=== PATIENT | male | born 1955 | race Caucasian/White ===

== ENCOUNTER 2016-09-02 16:12 | Emergency (ER) | payer OTHER ==
[2016-09-02 16:21] VITALS: PULSE 58
[2016-09-02] MEDS ORDERED: OXYCODONE/APAP 5/325 TAB PO ONE (16:30)
--- NOTE | 2016-09-02 16:30 | EDPHY ---
General - History Smoking Status: Never smoked Narrative: CHIEF COMPLAINT: Ankle injury HISTORY OF PRESENT ILLNESS: Patient was walking down his steps inside his home this afternoon when he tripped, inverting his left foot. Noted a sudden onset of pain on the lateral aspect of the left ankle. [id number] pain. Worse with palpation or movement. No radiating pain. No numbness or tingling. No pain in the ipsilateral foot, heel or proximal fibula. Able to bear weight but with moderate to severe pain. No injury elsewhere. No other associated complaints or modifying factors. PRIOR ORTHO INJURIES: None ESTABLISHED ORTHOPEDIST: None REVIEW OF SYSTEMS: Ten systems reviewed and are negative unless otherwise noted in the HPI EXAMINATION General Appearance: Alert, no distress Cardiovascular: Pulses normal throughout. Symmetric DP pulses 2+. Brisk cap refill Neurological: A&O, sensory symmetric, strength symmetric. Normal proprioception of the great toe Skin: Warm and dry, no rash. Mild ecchymosis over the left lateral ankle. No lacerations or abrasions. Extremities: Moderate tenderness of the left lateral malleolus. There is moderate edema noted. No instability of the ankle. No tenderness of the left midfoot her left heel. No tenderness of the left proximal fibula. Range of motion of the ankles are symmetric and intact Psychiatric: Mood and affect normal DIFFERENTIAL DIAGNOSES: Including but not limited to sprain, fracture, fracture dislocation, strain, hematoma MDM: 4:30 p.m. Acute inversion injury of the left ankle. There is lateral malleolar tenderness and edema. X-ray has been ordered. He is neuro intact with no pain of the mid foot, heel or proximal fibula. 5:00 p.m. Notified by radiologist Dr. Wallace. Acute, nondisplaced fracture of the distal fibula as well as a transverse proximal 5th metatarsal fracture. 5:30 p.m. I have re-evaluated the patient. He remains neurovascular intact. I have informed the fracture of the distal fibula and the 5th metatarsal. I have placed on a Kevin boot and crutches. He is to remain nonweightbearing until seen by Orthopedics next week due to the location of the fibular fracture. He is comfortable with this plan. We will also discuss compression stockings versus Caio wrap to the calf for DVT prophylaxis. Also recommend taking aspirin daily. He will follow up with Orthopedics next week. Return to ER for worsening pain, increasing swelling or neuro changes. ED Precautions: Worsening pain. Erythema, edema, cyanosis, pallor, paresthesia or anesthesia. SUPERVISION: This patient was independently evaluated without direct examination by the attending physician. Case was discussed with attending physician. (Arvind Ziegler ) - Diagnostics Imaging Results: Imaging Impressions Ankle X-Ray 09/02/16 16:30 Impression: 1. Minimally displaced transverse fracture of the lateral malleolus. 2. Nondisplaced transverse fracture of the base of the fifth metatarsal. 3. Additional findings as above. Findings discussed with Arvind Ziegler 09/02/2016 at 16:57. - Objective Vital Signs: Initial Vital Signs Temperature (C) 36.6 C 09/02/16 16:17 Heart Rate 58 L 09/02/16 16:17 Respiratory Rate 16 09/02/16 16:17 Blood Pressure 148/98 H 09/02/16 16:17 O2 Sat (%) 98 09/02/16 16:17 O2 Delivery Mode Room Air Allergies/Adverse Reactions: No Known Allergies Allergy (Verified 09/02/16 16:17) Home Medications: Medication Instructions Recorded Metoprolol Succinate Xr [Toprol Xl 25 mg PO DAILY 09/02/16 25 mg (*)] oxyCODONE HCL/ACETAMINOPHEN 1 each PO Q4-6PRN PRN #20 tablet 09/02/16 [Percocet 5-325 mg Tablet] Medications Given: Discontinued Medications Oxycodone/Acetaminophen (Percocet 5/325) 1 tab PO EDNOW ONE Stop: 09/02/16 16:31 Last Admin: 09/02/16 16:43 Dose: 1 tab Oxycodone/Acetaminophen (Percocet 5/325mg Prepack#4) 1 btl TAKEHOME EDNOW ONE Stop: 09/02/16 18:25 Last Admin: 09/02/16 18:28 Dose: 1 btl Departure - Departure Disposition: Home, Routine, Self-Care Clinical Impression: Sprain of ankle, left Qualifiers: Encounter type: initial encounter Involved ligament of ankle: unspecified ligament Qualified Code(s): S93.402A - Sprain of unspecified ligament of left ankle, initial encounter Condition: Good Instructions: Ankle Fracture (ED), Ankle Sprain (ED), Leg Fracture (ED), Foot Fracture in Adults (ED) Additional Instructions: Symptomatic medications as discussed. Follow up with Orthopedics for definitive care. Return to ER for worsening pain, numbness or tingling Referrals: Elisabet Isaac PA [Primary Care Provider] - As per Instructions eMdina Martínez MD [Medical Doctor] - As per Instructions Prescriptions: oxyCODONE HCL/ACETAMINOPHEN [Percocet 5-325 mg Tablet] 1 each PO Q4-6PRN PRN # 20 tablet PRN Reason: Pain, Breakthrough
[2016-09-02 18:07] VITALS: BP 129/87; RESP 20; TEMP 98.1; O2SAT 93
[2016-09-02] MEDS ORDERED: OXYCODONE/APAP 5/325MG PREPACK#4 BTL TAKEHOME ONE (18:24)
== END 2016-09-02 18:07 | disposition home or self-care (01) ==
DX: S93.402A Sprain of unspecified ligament of left ankle, initial encounter (principal); X58.XXXA Exposure to other specified factors, initial encounter; Y92.009 Unspecified place in unspecified non-institutional (private) residence as the place of occurrence of the external cause; Y93.01 Activity, walking, marching and hiking
CPT/HCPCS: L4386

== ENCOUNTER → 2017-01-02 | Outpatient (CLI) | payer OTHER | LOC: CIMAGING 14:35 | PROVIDERS: ATTEND Orthopaedic Surgery | DX: S82.62XK Displaced fracture of lateral malleolus of left fibula, subsequent encounter for closed fracture with nonunion (principal) | CPT/HCPCS: 73700-PO ==

== ENCOUNTER 2017-07-13 14:55 | Emergency (ER) | payer OTHER ==
--- NOTE | 2017-07-13 15:11 | CPEKG ---
Heart Rate: 67 RR Interval: 896 P-R Interval: 144 QRSD Interval: 88 QT Interval: 404 QTC Interval: 427 P [place]: 43 QRS [place]: -23 T Wave [place]: -6 EKG Severity - BORDERLINE ECG - EKG Impression: SINUS RHYTHM EKG Impression: BORDERLINE LEFT AXIS DEVIATION EKG Impression: BORDERLINE T ABNORMALITIES, INFERIOR LEADS Electronically Signed By: Rupal Muñoz 14-Jul-2017 20:12:18
[2017-07-13] MEDS ORDERED: ASPIRIN 81 MG CHEWABLE TAB PO ONE (16:26)
[2017-07-13] MEDS ORDERED: NS 500 ML IV ONE (16:26)
--- NOTE | 2017-07-13 16:29 | EDPHY ---
H & P Time Seen by Provider: 07/13/17 15:09 HPI/ROS: CHIEF COMPLAINT: Palpitations HISTORY OF PRESENT ILLNESS: The patient is a 62-year-old male with a history of hypertension, PE and DVT who presents to the emergency department with intermittent palpitations. Symptoms started 2 weeks ago. They occur more frequently at at night. They last for seconds at a time. He denies any associated symptoms when he has the palpitations. He has no lightheadedness or dizziness. No chest pain or shortness of breath. Patient was at his neurologist's office to be evaluated for migraines. The neurologist was listening to him he noted that he was in a rapid rate in 7 to the emergency department. Patient denies any palpitations at this time. He is asymptomatic. REVIEW OF SYSTEMS: My complete review of systems is negative except as mentioned in the HPI. Past Medical/Surgical History: Includes DVT, PE, hypertension, migraine. His DVT was secondary to Orthopedic surgery. Past surgical history: Orthopedic surgery Social history: The patient drinks coffee. He does not use alcohol. Smoking Status: Never smoked Physical Exam: Vitals noted GENERAL: Well-appearing, in no acute distress, alert. HEENT: Eyes normal to inspection, normal pharynx, no signs of dehydration. NECK: [No thyromegaly, no lymphadenopathy, supple. RESPIRATORY: Clear to auscultation bilaterally, no rales, rhonchi or wheezing. CVS: Regular rate and rhythm, no rubs, murmurs, or gallops. ABDOMEN: Soft, nontender, nondistended, no organomegaly. BACK: Normal to inspection, no CVA tenderness. SKIN: Normal color, no rash, warm, dry. No pallor. EXTREMITIES: No pedal edema, no calf tenderness, no Homans sign or cords, no joint swelling. NEURO/PSYCH: Alert and oriented x3, normal mood and affect, normal motor sensory exam. No obvious cranial nerve deficit. Constitutional: Initial Vital Signs Temperature (C) 36.9 C 07/13/17 14:56 Heart Rate 69 07/13/17 14:56 Respiratory Rate 18 07/13/17 14:56 Blood Pressure 163/106 H 07/13/17 14:56 O2 Sat (%) 96 07/13/17 14:56 O2 Delivery Mode Room Air Allergies/Adverse Reactions: No Known Allergies Allergy (Verified 09/02/16 16:17) Home Medications: Medication Instructions Recorded Metoprolol Succinate Xr [Toprol Xl 25 mg PO DAILY 09/02/16 25 mg (*)] Medical Decision Making ED Course/Re-evaluation: In the emergency department I discussed possible etiologies with the patient. Laboratory studies and EKG were ordered. Patient was placed on a monitor and storage bin tender. He was in sinus rhythm. EKG shows normal sinus rhythm, normal rate, normal axis, normal intervals. There are no ST or T-wave abnormalities. EKG is normal as interpreted by me. Unchanged from previous Differential Diagnosis: My differential includes but is not limited to ACS, acute MS, dysrhythmia, atrial fibrillation, atrial flutter, V-tach, VFib electrolyte abnormality, sugar abnormality, thyroid disease - Data Points Laboratory Results: Laboratory Results 07/13/17 15:10 07/13/17 15:10 07/13/17 07/13/17 15:10 15:10 WBC 6.87 10^3/uL 10^3/uL (3.80-9.50) RBC 4.82 10^6/uL 10^6/uL (4.40-6.38) Hgb 15.0 g/dL g/dL (13.7-17.5) Hct 43.0 % % (40.0-51.0) MCV 89.2 fL fL (81.5-99.8) MCH 31.1 pg pg (27.9-34.1) MCHC 34.9 g/dL g/dL (32.4-36.7) RDW 13.2 % % (11.5-15.2) Plt Count 219 10^3/uL 10^3/uL (150-400) MPV 12.0 fL H fL (8.7-11.7) Neut % (Auto) 62.1 % % (39.3-74.2) Lymph % (Auto) 27.7 % % (15.0-45.0) [place] % (Auto) 7.7 % % (4.5-13.0) Eos % (Auto) 1.6 % % (0.6-7.6) Baso % (Auto) 0.6 % % (0.3-1.7) Nucleat RBC Rel Count 0.0 % % (0.0-0.2) Absolute Neuts (auto) 4.27 10^3/uL 10^3/uL (1.70-6.50) Absolute Lymphs (auto) 1.90 10^3/uL 10^3/uL (1.00-3.00) Absolute Monos (auto) 0.53 10^3/uL 10^3/uL (0.30-0.80) Absolute Eos (auto) 0.11 10^3/uL 10^3/uL (0.03-0.40) Absolute Basos (auto) 0.04 10^3/uL 10^3/uL (0.02-0.10) Absolute Nucleated RBC 0.00 10^3/uL 10^3/uL (0-0.01) Immature Gran % 0.3 % % (0.0-1.1) Immature Gran # 0.02 10^3/uL 10^3/uL (0.00-0.10) Sodium 142 mEq/L mEq/L (135-145) Potassium 3.7 mEq/L mEq/L (3.5-5.2) Chloride 105 mEq/L mEq/L (97-110) Carbon Dioxide 25 mEq/l mEq/l (22-31) Anion Gap 12 mEq/L mEq/L (8-16) BUN 11 mg/dL mg/dL (7-23) Creatinine 0.8 mg/dL mg/dL (0.7-1.3) Estimated GFR > 60 Glucose 89 mg/dL mg/dL (70-100) Calcium 9.7 mg/dL mg/dL (8.5-10.4) Troponin I < 0.012 ng/mL ng/mL (0.000-0.034) TSH 3.640 uIU/mL uIU/mL (0.465-4.680) Medications Given: Discontinued Medications Aspirin (Aspirin) 324 mg PO EDNOW ONE Stop: 07/13/17 16:27 Last Admin: 07/13/17 17:12 Dose: 324 mg Sodium Chloride (Ns) 500 mls @ 1,000 mls/hr IV EDNOW ONE PRN Reason: Protocol Stop: 07/13/17 16:55 Last Admin: 07/13/17 17:10 Dose: 500 mls Departure - Departure Disposition: Home, Routine, Self-Care Clinical Impression: Palpitations Condition: Good Instructions: Heart Palpitations (ED) Additional Instructions: You need close follow-up with Cardiology. You been given Cardiology contact information. Return with increasing palpitations, prolonged palpitations, chest pain, shortness of breath, lightheadedness, dizziness or any other concerns. Cardiology was given your contact information and will call Sunday morning. If you do not hear from them call Cardiology on Sunday Referrals: Elisabet Isaac PA [Primary Care Provider] - 2-3 days without fail [facility] [Provider Group] - 07/16/17
[2017-07-13 17:12] LABS: PLATELET COUNT 219 10^3/uL (150-400)
[2017-07-13 18:59] VITALS: BP 152/95; PULSE 61; RESP 16; TEMP 98.2; O2SAT 93
== END 2017-07-13 18:59 | disposition home or self-care (01) ==
DX: R00.2 Palpitations (principal); I10 Essential (primary) hypertension; E86.9 Volume depletion, unspecified

== ENCOUNTER 2017-07-25 15:24 | Observation (INO) | payer OTHER ==
[2017-07-25] MEDS ORDERED: DILTIAZEM 125 MG in D5W 125 ML IV ONE (15:39)
--- NOTE | 2017-07-25 15:42 | CPEKG ---
Heart Rate: 108 RR Interval: 556 QRSD Interval: 86 QT Interval: 328 QTC Interval: 440 QRS [place]: -31 T Wave [place]: -10 EKG Severity - ABNORMAL ECG - EKG Impression: ATRIAL FIBRILLATION, V-RATE 71-167 EKG Impression: LEFT AXIS DEVIATION EKG Impression: BORDERLINE T ABNORMALITIES, INFERIOR LEADS Electronically Signed By: Lisa Rojas 25-Jul-2017 20:52:00
[2017-07-25] MEDS ORDERED: DILTIAZEM HCL/D5W 125 ML IV SCH (16:00)
[2017-07-25] MEDS ORDERED: NS 500 ML IV ONE (16:08)
[2017-07-25 16:21] LABS: PLATELET COUNT 239 10^3/uL (150-400)
--- NOTE | 2017-07-25 16:26 | EDPHY ---
H & P Time Seen by Provider: 07/25/17 15:38 HPI/ROS: HPI Palpitations. 62-year-old male by private vehicle. This patient reports that he was recently diagnosed with atrial fibrillation which she describes to me as intermittent in nature. He was evaluated by his neurologist for an unrelated problem about a week and half ago. His neurologist noted that he had a fast and irregular pulse. He was then sent to the emergency department and seen on July 13. At that time he had an unremarkable EKG which showed a normal sinus rhythm. He was discharged after an unremarkable workup with close follow-up with Cardiology. He was seen at [facility]. He was placed on a Holter monitor and recently diagnosed with intermittent atrial fibrillation. He was started on Eliquis 2 days ago at 5 mg twice daily. He presents to the emergency department stating that he has felt an irregular heartbeat and just feeling "off " with increased fatigue for the last 16 hr. He denies any chest pain, no shortness of breath. No other complaints. ROS: Constitutional: No fever, no chills. As above. Eyes: No discharge. No changes in vision. ENT: No sore throat. No nasal congestion or rhinorrhea. Respiratory: No cough. No shortness of breath. Cardiac: No chest pain, as above. Gastrointestinal: No abdominal pain, no vomiting, no diarrhea. Genitourinary: No hematuria. No dysuria or increased frequency with urination. Musculoskeletal: No back pain. No neck pain. No myalgias or arthralgias. Skin: No rashes. Neurological: No headache. No focal weakness or altered sensation. Past medical history: Hypertension, recently diagnosed atrial fibrillation, prior history of DVT and PE. Besides Eliquis he also takes lisinopril. Social history: Nonsmoker. Drinks alcohol occasionally. Here currently by himself. Physical Exam: General Appearance: Alert, no distress. This patient is responding to questions appropriately and in full sentences. This patient appears well- hydrated and well-nourished. Eyes: Pupils equal and round no pallor or injection. No lid edema, erythema or injection. Respiratory: There are no retractions, lungs are clear to auscultation with good air movement bilaterally. Cardiovascular: Irregular irregular rhythm. No murmur appreciated. Gastrointestinal: Abdomen is soft and nontender, no masses, bowel sounds normal. No focal tenderness at McBurney's point. No Hargrove sign. Neurological: Motor sensory function is grossly intact. Cranial nerves are normal. Gait is normal. Skin: Warm and dry, no rashes. Musculoskeletal: Neck is supple and nontender. Extremities are symmetrical. All joints range without pain or impingement. Psychiatric: No agitation. No depression. Database: EKG: EKG time is 3:40 p.m.: EKG shows a narrow complex atrial fibrillation with ventricular rate average of 108. Left axis deviation noted. Borderline T-wave abnormalities in diffuse leads. No ST, T-wave changes indicative of acute ischemic or injury pattern. No evidence of right heart strain. Interpreted by me. Imaging: Chest x-ray AP portable; the cardiac mediastinal silhouette is unremarkable. No evidence of infiltrate or pneumothorax. No acute cardiopulmonary disease process noted. Interpreted by me. Procedures: Emergency department course: IV was placed. His vital signs were reviewed. monitoring specialist her at the time of my evaluation showed a irregular narrow complex rhythm with ventricular rate average in the 70s. The patient is currently on Eliquis. He will be started on normal saline with 500 cc to be given over the next 30 min to 1 hr. EKG obtained and reviewed by myself. 5:00 p.m., spoke with on-call vp design Dr. Sanket Welsh. He is familiar with this patient. He is happy to admit the patient with plan for JOÃO in the morning and cardioversion. He also feels it is reasonable if the patient wants to go home he will get the patient in to see Dr. Murphy sooner than previously scheduled which is about a week out. 5:05 p.m., patient re-evaluated. He is resting comfortably at this time. His rate has increased to 115-120. Denies any chest pain or shortness of breath. Patient given options of management. He would like to be admitted for JOÃO and cardioversion in the morning as above. 5:15 p.m., spoke with hospitalist, Dr. Amin. Case discussed in detail. He accepts this patient for admission and management plan as above. Patient's remaining emergency department course under my care has been uneventful. He has remained stable. He was admitted to the hospitalist service, telemetry in stable condition. Differential Diagnosis: The differential diagnosis on this patient includes but is not limited to atrial fibrillation. Hyperthyroid state, pulmonary embolism, acute coronary syndrome, electrolyte abnormality unlikely. This represents a partial list of diagnoses considered. These considerations are based on history, physical exam , past history, reassessment and diagnostic testing. Smoking Status: Never smoked Constitutional: Initial Vital Signs Temperature (C) 36.3 C 07/25/17 15:31 Heart Rate 73 07/25/17 15:31 Respiratory Rate 16 07/25/17 15:31 Blood Pressure 115/92 H 07/25/17 15:31 O2 Sat (%) 96 07/25/17 15:31 O2 Delivery Mode Room Air Allergies/Adverse Reactions: No Known Allergies Allergy (Verified 07/25/17 15:31) Home Medications: Medication Instructions Recorded Metoprolol Succinate Xr [Toprol Xl 25 mg PO DAILY 09/02/16 25 mg (*)] Eliquis 07/25/17 Lisinopril 07/25/17 Medical Decision Making - Diagnostics Imaging Results: Imaging Impressions Chest X-Ray 07/25/17 16:09 Impression: No active cardiopulmonary disease seen. - Data Points Laboratory Results: Laboratory Results 07/25/17 15:40 07/25/17 15:40 07/25/17 07/25/17 07/25/17 15:40 15:40 15:40 WBC 10.82 10^3/uL H 10^3/uL (3.80-9.50) RBC 5.39 10^6/uL 10^6/uL (4.40-6.38) Hgb 16.6 g/dL g/dL (13.7-17.5) Hct 47.0 % % (40.0-51.0) MCV 87.2 fL fL (81.5-99.8) MCH 30.8 pg pg (27.9-34.1) MCHC 35.3 g/dL g/dL (32.4-36.7) RDW 13.3 % % (11.5-15.2) Plt Count 239 10^3/uL 10^3/uL (150-400) MPV 11.3 fL fL (8.7-11.7) Neut % (Auto) 81.0 % H % (39.3-74.2) Lymph % (Auto) 12.6 % L % (15.0-45.0) [place] % (Auto) 5.4 % % (4.5-13.0) Eos % (Auto) 0.1 % L % (0.6-7.6) Baso % (Auto) 0.3 % % (0.3-1.7) Nucleat RBC Rel Count 0.0 % % (0.0-0.2) Absolute Neuts (auto) 8.77 10^3/uL H 10^3/uL (1.70-6.50) Absolute Lymphs (auto) 1.36 10^3/uL 10^3/uL (1.00-3.00) Absolute Monos (auto) 0.58 10^3/uL 10^3/uL (0.30-0.80) Absolute Eos (auto) 0.01 10^3/uL L 10^3/uL (0.03-0.40) Absolute Basos (auto) 0.03 10^3/uL 10^3/uL (0.02-0.10) Absolute Nucleated RBC 0.00 10^3/uL 10^3/uL (0-0.01) Immature Gran % 0.6 % % (0.0-1.1) Immature Gran # 0.07 10^3/uL 10^3/uL (0.00-0.10) PT 14.3 SEC SEC (12.0-15.0) INR 1.09 (0.83-1.16) APTT 32.0 SEC SEC (23.0-38.0) Sodium 141 mEq/L mEq/L (135-145) Potassium 4.7 mEq/L mEq/L (3.5-5.2) Chloride 108 mEq/L mEq/L (97-110) Carbon Dioxide 23 mEq/l mEq/l (22-31) Anion Gap 10 mEq/L mEq/L (8-16) BUN 17 mg/dL mg/dL (7-23) Creatinine 0.7 mg/dL mg/dL (0.7-1.3) Estimated GFR > 60 Glucose 107 mg/dL H mg/dL (70-100) Calcium 10.5 mg/dL H mg/dL (8.5-10.4) Creatine Kinase 28 IU/L IU/L (0-224) CK-MB (CK-2) Fraction 0.34 ng/mL ng/mL (0.00-3.19) Troponin I < 0.012 ng/mL ng/mL (0.000-0.034) TSH 1.500 uIU/mL uIU/mL (0.465-4.680) Medications Given: Discontinued Medications Diltiazem HCl 125 mg/ Dextrose 125 mls @ 0 mls/hr IV EDNOW ONE; Titrate PRN Reason: Protocol Stop: 07/25/17 15:40 Last Admin: 07/25/17 17:00 Dose: Not Given Sodium Chloride (Ns) 500 mls @ 1,000 mls/hr IV EDNOW ONE PRN Reason: Protocol Stop: 07/25/17 16:37 Last Admin: 07/25/17 16:37 Dose: 500 mls Departure - Departure Disposition: [facility] Acute Clinical Impression: Atrial fibrillation Referrals: Elisabet Isaac PA [Primary Care Provider] - As per Instructions
[2017-07-25 16:35] LABS: CREATINE KINASE 28 IU/L (0-224)
[2017-07-25 16:56] LABS: INR 1.09 (0.83-1.16); PROTIME(PATIENT) 14.3 SEC (12.0-15.0)
[2017-07-25] MEDS ORDERED: ZOLPIDEM TARTRATE 5 MG TAB PO PRN (18:09)
[2017-07-25] MEDS ORDERED: ACETAMINOPHEN 325 MG TAB PO PRN (18:09)
[2017-07-25] MEDS ORDERED: ONDANSETRON 4 MG/2 ML VIAL IVP PRN (18:09)
[2017-07-25] MEDS ORDERED: NS 1,000 ML IV SCH (18:15)
--- NOTE | 2017-07-25 18:16 | PDGENHP ---
History and Physical History and Physical: CC: Palpitations HISTORY: This patient has a history of palpitations at of occurred intermittently over about 3 months. Initially he had a Holter monitor that showed mostly SVT but 1 brief bit of atrial fibrillation. He was seen in the ER here about a week ago or so with some atrial fibrillation was referred to Dr. Freddie Dalal. He does take Toprol XL for blood pressure and he has not had fast AFib. He has not had any symptoms of heart failure. There are no symptoms of angina or PE. He has no symptoms of fever, does not drink alcohol, does not have any other obvious triggers for AFib based on history. There is apparently some unknown history of a arrhythmia in his parents. Dr. Jones saw the patient in clinic and elected to continue the Toprol an add oral Eliquis. He does not have any known thyroid disease or other symptoms of thyroid disease at this time. He is tolerating his atrial fibrillation quite well as he has had it in the last several weeks. The patient awake and is last night and had onset of palpitations which is still now present 18 hr later. Again he is tolerating this well with no lightheadedness, weakness, dyspnea, leg swelling, angina or other acute symptoms. ROS: A comprehensive 10 system review revealed no other significant findings PAST MEDICAL HISTORY: Hypertension Obesity Hyperlipidemia Migraine headaches Sciatica Normal colonoscopy 2005 FAMILY MEDICAL HISTORY: Skin cancer, myocardial infarction in a grandfather ? arrythmia SOCIAL HISTORY: no tobacco or alcohol or street drugs MEDICATIONS: The patients list has been reconciled by our clinical pharmacist in the EMR. I have reviewed the list and ordered appropriate medicines. 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 operator, no focal weakness IV site: looks normal LABORATORY DATA: [place] [address] Chemistry has a glucose 107 otherwise normal metabolic panel and troponin RADIOLOGY STUDIES: I reviewed images from a one-view chest x-ray done in the ER that it is shows no abnormalities on my reading 12 LEAD EKG: I reviewed the tracing from an EKG done in the ER which shows a rate control AFib with nothing ischemic ASSESSMENT: -Paroxysmal A Fib, currently in A Fib with good rate control on anticoagulation atrial -hypertension, chronic currently with mild diastolic elevations on medication -elevated white blood cell count likely reflects effect of steroid which she is on for migraine control -recent increase in frequency of chronic migraines currently on a prednisone taper for that -history of hyperlipidemia The ER staff reviewed this case with Dr. Welsh and betina. The plan at this point is to bring the patient in overnight on observation on monitor and if he remains in AFib perform JOÃO and if safe do a cardioversion. PLANS: -placed on observe on residential monitor -NPO after midnight -if still in atrial fibrillation will do TTE and consider cardioversion in the morning -if spontaneously converts will need to determine whether antiarrhythmic is warranted -continue his current beta-deidre and anticoagulant I have reviewed the patient's case in detail with Dr. Lisa Rojas I have reviewed the patient's past medical records as part of this assessment, including clinic records and ER visit records
[2017-07-25] MEDS: APIXABAN 5 MG TAB PO SCH (21:26)
[2017-07-26] MEDS ORDERED: ASPIRIN 81 MG CHEWABLE TAB PO SCH (09:00)
[2017-07-26] MEDS ORDERED: predniSONE 10 MG TAB PO SCH (09:00)
[2017-07-26] MEDS ORDERED: LISINOPRIL 10 MG TAB PO SCH (09:00)
[2017-07-26] MEDS ORDERED: METOPROLOL SUCCINATE XR 50 MG TAB PO SCH (09:00)
--- NOTE | 2017-07-26 09:14 | PDCARPN ---
Cardiology Progress Note Chief Complaint: Palpitations Assessment/Plan: Assessment: Patient is a 62 y/o male with history of HTN, HLP, frequent migraines, and recent diagnosis of pAF (on Eliquis with [id number] score of 1), who presented to the ER last night at [facility] with complaints of palpitations. Symptoms started less than 20 hours ago, and discussion about options in the ER were undertaken. Patient was recently started on Eliquis (after an episode of pAF was noted), and before this most recent episode. No cardiovascular complaints of chest pains or pressure. No PND or orthopnea. Patient does have an awareness of the arrhythmia. Patient was just seen in outpatient [facility] by Dr. Jovany Dalal (09-22-17). The previous bout of atrial fibrillation spontaneously converted to normal sinus rhythm. This episode, as stated above, has been ongoing for greater than 20 hours. was present with the patient in the room today. Discussion about "snoring " and "not breathing" at night was undertaken. The patient admits to not sleeping well in general. The reported that the patient might have apnea during the night (she herself has CONCHIS and uses CPAP). Regular exercise was more consistent in the past, but since an ankle fracture, this has not been the case. No alcohol use at all. No illicits (marijuanna) have been used. 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 Active migraine this morning. Plan: (1) JOÃO with possible cardioversion this morning. We are working out the schedule time with anesthesia. (2) Would arrange for formal sleep study (3) Would continue therapy on Eliquis for CVA prophylaxis (4) Would continue antihypertensive therapy, but consider change to therapy given some side effect that are possibly noted with addition of Toprol (5) Annual assessment of cholesterol and LFTs should continue (6) Resume regular and routine exercise Subjective: Awareness of irregular heart beat Reviewed/Discussed With: family, multidisciplinary team Objective: Vital Signs (8 Hrs) Temp Pulse Resp BP Pulse Ox 07/26/17 07:41 36.4 C 64 14 117/82 H 93 07/26/17 04:00 36.6 C 75 19 114/69 94 Intake/Output (24 Hrs) 07/25/17 07/26/17 07/27/17 05:59 05:59 05:59 Other: Weight 86.183 kg Number of Voids Toilet 1 Result Diagrams: 07/25/17 15:40 07/26/17 04:04 Telemetry: atrial fibrillation with controlled ventricular response - Physical Exam Constitutional: WDWN, healthy appearing, no apparent distress Eyes: PERRL, EOMI Ears, Nose, Mouth, Throat: moist mucous membranes Cardiovascular: no murmurs, no rubs, no gallops, irregularly irregular Peripheral Pulses: 2+: dorsalis-pedis (R), dorsalis-pedis (L) Respiratory: clear to auscultate bilat, no crackles, no wheezes Gastrointestinal: normoactive bowel sounds Skin: no edema Musculoskeletal: no muscular tenderness Neurologic: AAOx3, CN II-XII grossly intact Psychiatric: cooperative, interactive, following commands ICD10 Worksheet Patient Problems: Problems Problem Status Onset Atrial fibrillation Acute
[2017-07-26] MEDS: APIXABAN 5 MG TAB PO SCH (09:39)
[2017-07-26] MEDS ORDERED: SUMATRIPTAN SUCCINATE 100 MG PO PRN (10:10)
--- NOTE | 2017-07-26 10:53 | PDANEPAE ---
ANE History of Present Illness 62 yo for heike/cv ANE Past Medical History - Cardiovascular History Hx Hypertension: Yes Hx Arrhythmias: Yes Hx Palpitations: Yes - Pulmonary History Hx Oxygen in Use at Home: No Hx Sleep Apnea: No - Endocrine History Hx Diabetes: No ANE Review of Systems Review of Systems: - Exercise capacity METS (RN): 4 METS ANE Patient History - Allergies Allergies/Adverse Reactions: No Known Allergies Allergy (Verified 07/25/17 15:31) - Home Medications Home medications: home medication list seen and reviewed Home Medications: Apixaban [Eliquis] 5 mg PO BID 07/25/17 [Last Taken 07/25/17 09:00] Aspirin [Aspirin 81mg (*)] 81 mg PO DAILY 07/25/17 [Last Taken 07/25/17] Lisinopril [Zestril 10 mg (*)] 10 mg PO DAILY 07/25/17 [Last Taken 07/25/17] Metoprolol Succinate Xr [Toprol Xl 50 mg (*)] 50 mg PO DAILY 07/25/17 [Last Taken 07/25/17] Sumatriptan Succinate 100 mg PO ONCE PRN 07/25/17 [Last Taken 07/24/17] predniSONE [predniSONE] 10 mg PO DAILY 07/25/17 [Last Taken 07/25/17] - NPO status NPO Status: no food or drink >8 hours - Anes Hx Anes Hx: no prior problems - Smoking Hx Smoking Status: Never smoked ANE Labs/Vital Signs - Labs Result Diagrams: 07/25/17 15:40 07/26/17 04:04 - Vital Signs Blood Pressure: 137/102 Heart Rate: 72 Respiratory Rate: 14 O2 Sat (%): 93 Height: 5 ft 8 in Weight: 86.183 kg ANE Physical Exam - Airway Neck exam: FROM Mallampati Score: Class 2 Mouth exam: normal dental/mouth exam - Pulmonary Pulmonary: no respiratory distress - Cardiovascular Cardiovascular: regular rate and rhythym - ASA Status ASA Status: II ANE Anesthesia Plan Anesthesia Plan: GA with mask
[2017-07-26] MEDS ORDERED: PROPOFOL 200 MG/20 ML VIAL ONE (10:55)
[2017-07-26] MEDS ORDERED: ATROPINE SULFATE 1 MG/10 ML SYR ONE (10:59)
--- NOTE | 2017-07-26 11:20 | POSTANESTH ---
Post Anesthetic Evaluation Cardiovascular Status: Normal, Stable Respiratory Status: Normal, Stable Level of Consciousness/Mental Status: Can Participate in Eval Pain Control: Adequate, Prn Tx Ordered Nausea/Vomiting Control: Adequate, Prn Tx Ordered Complications Possibly Related to Anesthesia: None Noted
--- NOTE | 2017-07-26 11:24 | PDTEE1 ---
JOÃO Cardioversion Procedure Procedure: electrical cardioversion, transesophageal echo Indications: atrial fibrillation Consent: signed and in chart Anticoagulation: eliquis Procedural Details: After consents for anesthesia, JOÃO, and possible cardioversion were signed, the patient was placed in the left lateral position to facilitate JOÃO probe placement. Anesthesia was induced, and the JOÃO probe was placed without difficulty. Standard views were obtained. Preliminary report on JOÃO: Normal LVEF with normal chamber dimensions. Normal atrial dimensions. Mild mitral regurgitation with grossly normal valve appearance. Grossly normal tricuspid valve without appreciable regurgitation noted. Trileaflet aortic valve without sclerosis or insufficiency noted. Pulmonary valve was grossly normal. Bubble contrast injection without right to left passage noted. No thrombus noted to the MALGORZATA. Velocities were greater than 50. Given lack of thrombus to the MALGORZATA, we opted to proceed with cardioversion A single shock at 200 J (sync) was performed with conversion from atrial fibrillation with rates of 112 bpm to sinus bradycardia (40-45 bpm). No complications were appreciated. Patient awakened without complaints. Would have the patient seen by cardiology as scheduled (I believe there is an appointment with EP tomorrow with Dr. Saba Vaz). Synchronized cardioversion attempt #1: 200J Results: normal sinus rhythm Conclusions: successful JOÃO cardioversion Patient Problems: Problems Problem Status Onset Atrial fibrillation Acute
--- NOTE | 2017-07-26 11:58 | CPEKG ---
Heart Rate: 52 RR Interval: 1154 P-R Interval: 176 QRSD Interval: 84 QT Interval: 416 QTC Interval: 387 P [place]: 59 QRS [place]: -22 T Wave [place]: -70 EKG Severity - ABNORMAL ECG - EKG Impression: SINUS RHYTHM EKG Impression: BORDERLINE LEFT AXIS DEVIATION EKG Impression: ABNORMAL T, CONSIDER ISCHEMIA, DIFFUSE LEADS Electronically Signed By: Sanket Isaac 27-Jul-2017 12:30:48
[2017-07-26 12:50] VITALS: TEMP 98
--- NOTE | 2017-07-26 14:40 | ECHO ---
[email or web address] [address] [address] Main: [phone] Fax: Transesophageal Echocardiography Name: RENZO PITTMAN MR#: [id number] Study Date: 07/26/2017 Study Time: 10:48 AM Date of : 1955 Age: 62 year(s) Height: ( ) Weight: ( ) BSA: Gender: Male Examination: JOÃO Indication: Pre Cardioversion Image Quality: Contrast: Requested by: Aditya Amin Heart Rate: Rhythm: BP: / Procedure Staff Software Engineering Supervisor: Dragan Olson RDCS Reading Physician: Sanket Welsh MD Requesting Provider: JOÃO Exam Details Conclusions: Normal global systolic LV function. No regional wall motion abnormality. Normal size right ventricle. An agitated saline study was performed and was negative for intracardiac shunting. No thrombus in left appendage. The mitral valve is normal in appearance. Mild mitral valve regurgitation is present. The aortic valve is tri-leaflet and functions normally. The tricuspid valve is normal in appearance and function. The pulmonic valve is normal in appearance and function. The aorta is normal. No pericardial effusion. Proceeeded with successful elective DC cardioversion.. Measurements: Chambers Valvular Assessment AV/MV Valvular Assessment TV/PV Normal Normal Normal Name Value Range Name Value Range Name Value Range Additional Measurements: Findings: Left Ventricle: Patient: RENZO PITTMAN Study Date: 07/26/2017 Page 1 of 2 10:48 AM Normal global systolic LV function. No regional wall motion abnormality. Right Ventricle: Normal size right ventricle. Left Atrium: An agitated saline study was performed and was negative for intracardiac shunting. Left Atrial Appendage: No thrombus in left appendage. Mitral Valve: The mitral valve is normal in appearance. Mild mitral valve regurgitation is present. Aortic Valve: The aortic valve is tri-leaflet and functions normally. Tricuspid Valve: The tricuspid valve is normal in appearance and function. Pulmonic Valve: The pulmonic valve is normal in appearance and function. Aorta: The aorta is normal. Pericardium: No pericardial effusion. Exam Comments: Proceeeded with successful elective DC cardioversion.. l1n (No Signature Object) Patient: RENZO PITTMAN Study Date: 07/26/2017 Page 2 of 2 10:48 AM [id number]
--- NOTE | 2017-07-26 15:04 | PDDCSUM ---
Discharge Summary Discharge Summary: 62 yo male with hx of pAfib with acute Afib. Rate was controlled. He had successful cardioversion today. JOÃO unremarkable He cont on Eliquis No med changes were made He has an appt with Dr. Vaz tomorrow consultants. Cardiology DDX -Paroxysmal A Fib -hypertension, chronic currently with mild diastolic elevations on medication -elevated white blood cell count likely reflects effect of steroid which she is on for migraine control -recent increase in frequency of chronic migraines currently on a prednisone taper for that -history of hyperlipidemia Exam (prior to cardioversion) nad irr/irr cta b s/nt/nd no edema alert awake meds: no changes to meds f/u: with Dr. Vaz tomorrow total time spent on discharge is 35 minutes
[2017-07-26 15:39] VITALS: BP 130/85; PULSE 61; RESP 16; O2SAT 95
== END 2017-07-26 17:20 | disposition home or self-care (01) ==
LOC: F2W 20:05
PROVIDERS: ADMIT Internal Medicine; ATTEND Family Medicine
PROC: B245ZZ4 Ultrasonography of Left Heart, Transesophageal (ICD-10-PCS; principal; 2017-07-26)
PROC: 5A2204Z Restoration of Cardiac Rhythm, Single (ICD-10-PCS; principal; 2017-07-26)
DX: I48.0 Paroxysmal atrial fibrillation (principal); I10 Essential (primary) hypertension; D72.829 Elevated white blood cell count, unspecified; E86.9 Volume depletion, unspecified; E78.5 Hyperlipidemia, unspecified; G43.909 Migraine, unspecified, not intractable, without status migrainosus; E66.9 Obesity, unspecified; Z68.28 Body mass index [BMI] 28.0-28.9, adult; Z79.01 Long term (current) use of anticoagulants; Z86.718 Personal history of other venous thrombosis and embolism; Z86.711 Personal history of pulmonary embolism
CPT/HCPCS: 71045; 92960; 93005; 93312; 99285; G0378; J0461; J2704; J7512

== ENCOUNTER 2017-09-17 18:52 | Observation (INO) | payer OTHER ==
--- NOTE | 2017-09-17 18:59 | EDPHY ---
H & P Stated Complaint: HX AFIB/CP "FEELING WEIRD" Time Seen by Provider: 09/17/17 18:59 - Personal History Current Tetanus/Diphtheria Vaccine: Unsure - Medical/Surgical History Hx Asthma: No Hx Chronic Respiratory Disease: No Hx Diabetes: No Hx Cardiac Disease: Yes Hx Renal Disease: No Hx Cirrhosis: No Hx Alcoholism: No Hx HIV/AIDS: No Hx Splenectomy or Spleen Trauma: No Other PMH: Hypertension. PE. DVT. ortho surgeries. afib - Social History Smoking Status: Never smoked Constitutional: Initial Vital Signs Temperature (C) 36.7 C 09/17/17 18:54 Heart Rate 53 L 09/17/17 18:54 Respiratory Rate 17 09/17/17 18:54 Blood Pressure 158/87 H 09/17/17 18:54 O2 Sat (%) 95 09/17/17 18:54 O2 Delivery Mode Room Air Allergies/Adverse Reactions: No Known Allergies Allergy (Verified 07/25/17 15:31) Home Medications: Medication Instructions Recorded Aspirin [Aspirin 81mg (*)] 81 mg PO DAILY 07/25/17 Lisinopril [Zestril 10 mg (*)] 10 mg PO DAILY 07/25/17 Metoprolol Succinate Xr [Toprol Xl 50 mg PO DAILY 07/25/17 50 mg (*)] Diltiazem 09/17/17 Pradaxa 09/17/17 Medical Decision Making - Diagnostics Imaging Results: Imaging Impressions Chest X-Ray 09/17/17 19:12 Impression: Clear lungs. No acute process. Imaging: I viewed and interpreted images myself ED Course/Re-evaluation: CHIEF COMPLAINT: Chest pain HISTORY OF PRESENT ILLNESS: The patient is an anticoagulated 62 y/o male with a history of atrial fibrillation and hypertension complaining of a constant "indigestion-like feeling" in his chest that began around 09:00 this morning, about 10 hours ago. He has some associated fatigue and generally feels "off." His pain does not radiate and is not associated with nausea, dyspnea, diaphoresis. He tried eating to see if it would help symptoms, but had no alleviation. He was admitted last month for a cardioversion and had a negative stress test 2 months ago. No personal or family history of CAD, stents, MD, or high cholesterol as far as he knows. REVIEW OF SYSTEMS: A 10 point review of systems was performed and is negative with the exception of the elements mentioned in the history of present illness. PHYSICAL EXAM: HR, BP, O2 Sat, RR. Temp noted General Appearance: Alert, well hydrated, appropriate, and non-toxic appearing. Head: Atraumatic without scalp tenderness or obvious injury Eyes: Pupils equal, round, reactive to light and accommodation, EOMI, no trauma , no injection. Nose: Atraumatic, no rhinorrhea, clear. Throat: Mucus membranes moist. Neck: Supple Respiratory: No retractions, no distress, no wheezes, and no accessory muscle use. Lungs are clear to auscultation bilaterally. Cardiovascular: Regular rate and rhythm, no murmurs, rubs, or gallops. Good capillary refill all extremities. Gastrointestinal: Abdomen is soft, nontender, non-distended, no masses, no rebound, no guarding, no peritoneal signs. Musculoskeletal: Normal active ROM of all extremities, atraumatic. Neurological: Alert, appropriate, and interactive. The patient has non-focal cranial nerves, motor, sensory, and cerebellar exam. Skin: No rashes, good turgor, no nodules on palpation. Past medical history: Atrial fibrillation - Diltazem & Pradaxa, hypertension - Toprol, migraines, sciatica Past surgical history: JOÃO cardioversions Family history: Father had congenital heart failure. Social history: Vegan. 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 Sinus bradycardia rate 50. Diffuse pseudonormalization of T waves compared to EKG from 07/26/17. See hard copy and/ or "tracemaster" electronic copy for interpretation. Chest x-ray: negative DIFFERENTIAL DIAGNOSIS: The differential diagnosis for the patient's chest pain included but was not limited to myocardial ischemia, pulmonary embolus, chest wall pain, pleural inflammation, and pulmonary infectious causes. MEDICAL DECISION MAKING: This is a 62 y/o male with atrial fibrillation and minimal cardiac risk factors who presents with a 10-hour history of constant "indigestion-like" discomfort localized to his chest and general fatigue. He is well-appearing on exam. Initial rhythm shows sinus bradycardia in low 50s-high 40s. Plan for standard chest pain work up including IV, labs, EKG, chest x-ray. Labs are unremarkable and troponin should be sensitive given 10 hours of symptoms. Chest x-ray is normal. EKG shows some changes from 07/26/17 that could indicate pseudonormalization. 2003: Consulted with Dr. Welsh, cardiology. He agrees with concern over EKG and recommends admission and possible catheterization. 2013: Spoke with hospitalist service. Dr. Ambrosio accepts admission to PCU. - Data Points Laboratory Results: Laboratory Results 09/17/17 19:06 09/17/17 19:06 09/17/17 09/17/17 19:06 19:06 WBC 8.18 10^3/uL 10^3/uL (3.80-9.50) RBC 4.57 10^6/uL 10^6/uL (4.40-6.38) Hgb 14.1 g/dL g/dL (13.7-17.5) Hct 40.7 % % (40.0-51.0) MCV 89.1 fL fL (81.5-99.8) MCH 30.9 pg pg (27.9-34.1) MCHC 34.6 g/dL g/dL (32.4-36.7) RDW 13.9 % % (11.5-15.2) Plt Count 194 10^3/uL 10^3/uL (150-400) MPV 10.9 fL fL (8.7-11.7) Neut % (Auto) 69.3 % % (39.3-74.2) Lymph % (Auto) 21.4 % % (15.0-45.0) [place] % (Auto) 6.8 % % (4.5-13.0) Eos % (Auto) 1.7 % % (0.6-7.6) Baso % (Auto) 0.4 % % (0.3-1.7) Nucleat RBC Rel Count 0.0 % % (0.0-0.2) Absolute Neuts (auto) 5.67 10^3/uL 10^3/uL (1.70-6.50) Absolute Lymphs (auto) 1.75 10^3/uL 10^3/uL (1.00-3.00) Absolute Monos (auto) 0.56 10^3/uL 10^3/uL (0.30-0.80) Absolute Eos (auto) 0.14 10^3/uL 10^3/uL (0.03-0.40) Absolute Basos (auto) 0.03 10^3/uL 10^3/uL (0.02-0.10) Absolute Nucleated RBC 0.00 10^3/uL 10^3/uL (0-0.01) Immature Gran % 0.4 % % (0.0-1.1) Immature Gran # 0.03 10^3/uL 10^3/uL (0.00-0.10) Sodium 143 mEq/L mEq/L (135-145) Potassium 4.1 mEq/L mEq/L (3.5-5.2) Chloride 106 mEq/L mEq/L (97-110) Carbon Dioxide 26 mEq/l mEq/l (22-31) Anion Gap 11 mEq/L mEq/L (8-16) BUN 22 mg/dL mg/dL (7-23) Creatinine 0.8 mg/dL mg/dL (0.7-1.3) Estimated GFR > 60 Glucose 91 mg/dL mg/dL (70-100) Calcium 9.6 mg/dL mg/dL (8.5-10.4) Magnesium 2.0 mg/dL mg/dL (1.6-2.3) Troponin I < 0.012 ng/mL ng/mL (0.000-0.034) NT-Pro-B Natriuret Pep 186 pg/mL H pg/mL (0-125) Departure - Departure Disposition: [facility] Inpatient Acute Clinical Impression: Chest pain Qualifiers: Chest pain type: other chest pain Qualified Code(s): R07.89 - Other chest pain Condition: Fair Referrals: Elisabet Isaac PA [Primary Care Provider] - As per Instructions Report Scribed for: Bipin Yi Report Scribed by: Annamarie Campos Date of Report: 09/17/17 Time of Report: 19:18
--- NOTE | 2017-09-17 19:05 | CPEKG ---
Heart Rate: 50 RR Interval: 1200 P-R Interval: 180 QRSD Interval: 98 QT Interval: 444 QTC Interval: 405 P [place]: 35 QRS [place]: -18 T Wave [place]: -16 EKG Severity - BORDERLINE ECG - EKG Impression: SINUS RHYTHM EKG Impression: BORDERLINE LEFT AXIS DEVIATION EKG Impression: BORDERLINE T ABNORMALITIES, INFERIOR LEADS Electronically Signed By: Roberto Murphy 19-Sep-2017 07:45:11
[2017-09-17 19:16] LABS: PLATELET COUNT 194 10^3/uL (150-400)
[2017-09-17] MEDS ORDERED: ONDANSETRON 4 MG/2 ML VIAL IVP PRN (22:33)
[2017-09-17] MEDS ORDERED: ONDANSETRON DISINTEGRATING 4 MG TAB PO PRN (22:33)
[2017-09-17] MEDS ORDERED: ACETAMINOPHEN 325 MG TAB PO PRN (22:33)
[2017-09-17] MEDS: DABIGATRAN ETEXILATE MESYL 150 MG CAP PO SCH (23:48)
[2017-09-17] MEDS: PROPAFENONE HCL SR 225 MG CAP PO SCH (23:48)
--- NOTE | 2017-09-18 00:30 | PDGENHP ---
History and Physical - Chief Complaint Chest pain - History of Present Illness 62 yo M w/ AF and HTN presents with chest pain. Patient noticed central chest pain starting around 10 AM. He was at rest when it started and the pain did not vary with exertion. He thinks it felt like indigestion but did not go away with time or food, as it usually does with his heartburn symptoms. He had nuclear stress imaging performed on 08/01/17 that revealed no reversible perfusion defects and an EF of 65%. In the ED his troponin was negative. His ECG shows abnormal T waves in inferior and lateral leads, somewhat changed from his prior ECG. He is currently chest pain free. History Information - Allergies/Home Medication List Allergies/Adverse Reactions: No Known Allergies Allergy (Verified 07/25/17 15:31) Home Medications: Lisinopril [Zestril 10 mg (*)] 10 mg PO DAILY 07/25/17 [Last Taken 09/17/17] Metoprolol Succinate Xr [Toprol Xl 50 mg (*)] 50 mg PO DAILY 07/25/17 [Last Taken 09/17/17] Dabigatran Etexilate Mesyl [Pradaxa 150 MG (*)] 150 mg PO BID 09/17/17 [Last Taken 09/17/17 1 DOSE] Propafenone HCl [Propafenone HCl ER] 225 mg PO Q12H 09/17/17 [Last Taken 1 DOSE] Sumatriptan Succinate [Sumatriptan Succinate] 100 mg PO DAILY PRN 09/17/17 [ Last Taken 09/16/17] I have personally reviewed and updated: family history, medical history - Past Medical History atrial fibrillation, hypertension, migraines, pulmonary embolism (Provoked by orthopedic procedure, no longer on AC) - Surgical History Additional surgical history: Ankle and knee surgeries - Family History Additional family history: Denies family hx of CAD - Social History Smoking Status: Never smoked Review of Systems Review of Systems: ROS: 10pt was reviewed & negative except for what was stated in HPI & below Physical Exam Physical Exam: Temp Pulse Resp BP Pulse Ox 36.6 C 45 L 14 142/77 H 94 09/17/17 21:26 09/17/17 21:26 09/17/17 21:26 09/17/17 21:26 09/17/17 21:26 Constitutional: no apparent distress, not in pain Eyes: PERRL, EOMI Ears, Nose, Mouth, Throat: moist mucous membranes, no oral mucosal ulcers Cardiovascular: regular rate and rhythym, no murmur, rub, or gallop Respiratory: no respiratory distress, clear to auscultation Gastrointestinal: normoactive bowel sounds, soft, non-tender abdomen Skin: warm, normal color Musculoskeletal: full muscle strength, no muscle tenderness Neurologic: AAOx3, CN II-XII Intact Psychiatric: interacting appropriately, not anxious Lab Data & Imaging Review 09/17/17 19:06 09/17/17 19:06 WBC 8.18 10^3/uL (3.80-9.50) 09/17/17 19:06 RBC 4.57 10^6/uL (4.40-6.38) 09/17/17 19:06 Hgb 14.1 g/dL (13.7-17.5) 09/17/17 19:06 Hct 40.7 % (40.0-51.0) 09/17/17 19:06 MCV 89.1 fL (81.5-99.8) 09/17/17 19:06 MCH 30.9 pg (27.9-34.1) 09/17/17 19:06 MCHC 34.6 g/dL (32.4-36.7) 09/17/17 19:06 RDW 13.9 % (11.5-15.2) 09/17/17 19:06 Plt Count 194 10^3/uL (150-400) 09/17/17 19:06 MPV 10.9 fL (8.7-11.7) 09/17/17 19:06 Neut % (Auto) 69.3 % (39.3-74.2) 09/17/17 19:06 Lymph % (Auto) 21.4 % (15.0-45.0) 09/17/17 19:06 [place] % (Auto) 6.8 % (4.5-13.0) 09/17/17 19:06 Eos % (Auto) 1.7 % (0.6-7.6) 09/17/17 19:06 Baso % (Auto) 0.4 % (0.3-1.7) 09/17/17 19:06 Nucleat RBC Rel Count 0.0 % (0.0-0.2) 09/17/17 19:06 Absolute Neuts (auto) 5.67 10^3/uL (1.70-6.50) 09/17/17 19:06 Absolute Lymphs (auto) 1.75 10^3/uL (1.00-3.00) 09/17/17 19:06 Absolute Monos (auto) 0.56 10^3/uL (0.30-0.80) 09/17/17 19:06 Absolute Eos (auto) 0.14 10^3/uL (0.03-0.40) 09/17/17 19:06 Absolute Basos (auto) 0.03 10^3/uL (0.02-0.10) 09/17/17 19:06 Absolute Nucleated RBC 0.00 10^3/uL (0-0.01) 09/17/17 19:06 Immature Gran % 0.4 % (0.0-1.1) 09/17/17 19:06 Immature Gran # 0.03 10^3/uL (0.00-0.10) 09/17/17 19:06 Sodium 143 mEq/L (135-145) 09/17/17 19:06 Potassium 4.1 mEq/L (3.5-5.2) 09/17/17 19:06 Chloride 106 mEq/L (97-110) 09/17/17 19:06 Carbon Dioxide 26 mEq/l (22-31) 09/17/17 19:06 Anion Gap 11 mEq/L (8-16) 09/17/17 19:06 BUN 22 mg/dL (7-23) 09/17/17 19:06 Creatinine 0.8 mg/dL (0.7-1.3) 09/17/17 19:06 Estimated GFR > 60 09/17/17 19:06 Glucose 91 mg/dL (70-100) 09/17/17 19:06 Calcium 9.6 mg/dL (8.5-10.4) 09/17/17 19:06 Magnesium 2.0 mg/dL (1.6-2.3) 09/17/17 19:06 Troponin I < 0.012 ng/mL (0.000-0.034) 09/17/17 19:06 NT-Pro-B Natriuret Pep 186 pg/mL (0-125) H 09/17/17 19:06 Imaging Review: Imaging Impressions Chest X-Ray 09/17/17 19:12 Impression: Clear lungs. No acute process. Visualized and Interpreted EKG results: Yes EKG Interpretation: Positive for: normal sinsus rhythm, T waves inversion ( Inferior leads; flattening in lateral leads) Assessment & Plan Assessment: 62 yo M w/ HTN and AF presents with chest pain. Plan: 1. Chest pain - Atypical in that pain has no relation to exertion; it may be GI related. Troponin negative on admission but ECG abnormal and changed from prior. He had a nuclear perfusion study on 08/01 that showed no reversible ischemia and an EF of 65%. Dr. Welsh consulted who will consider a cardiac catheterization tomorrow. - Admit to PCU for observation - Monitor on telemetry, trend cardiac enzymes - NPO after midnight - Cardiology consulted, appreciate assistance 2. AF - S/p recent cardioversion; in NSR on admission. Will continue home medications including dabigatran. 3. HTN - Will hold lisinopril in case he has contrast for cath tomorrow; otherwise continue home medications. 4. Migraines - s/p recent botox injections. Diet - NPO after midnight Ppx - dabigatran Code - Full Dispo - Admit to PCU under observation status
[2017-09-18 04:29] LABS: PLATELET COUNT 181 10^3/uL (150-400)
[2017-09-18 09:00] VITALS: BP 148/94
[2017-09-18] MEDS ORDERED: METOPROLOL SUCCINATE XR 50 MG TAB PO SCH (09:00)
[2017-09-18] MEDS ORDERED: FAMOTIDINE 20 MG/NACL 50 ML IV ONE (09:58)
[2017-09-18] MEDS: DABIGATRAN ETEXILATE MESYL 150 MG CAP PO SCH (10:23)
--- NOTE | 2017-09-18 10:24 | ASDISCHSUM ---
Discharge Information Plan Status:Home with No Needs Medically Cleared to Leave:09/18/2017 Discharge Date:09/18/2017 CM D/C Disposition:Home, Routine, Self-Care ADT D/C Disposition:Home, Routine, Self-Care Projected Discharge Date:09/18/2017 Transportation at D/C: Discharge Delay Reason: Follow-Up Date:09/18/2017 Discharge Slot: Final Diagnosis: Placement Information Patient Contact Information Contact Name:NKECHI Relationship: Address:[address] Work Phone: City:[place] [facility] Phone: State/Zip Code:[place] [address] Email: Financial Information Financial Class:HMO and PPO Plans Primary Plan Desc:[employer] Primary Plan Number:[id number] Secondary Plan Desc: Secondary Plan Number: Assessment Information LACE LACE Length of stay for Answers: Less than 1 day current admission Acuity / Level of Answers: No Care: Did the patient have an inpatient admission? Comorbidities - select Answers: Other Notes: afib, HTN, migraines, h /o all that apply PE # of Emergency department Answers: 3-4 visits in the last 6 months Score: 4 Date Signed: 09/18/2017 10:23 AM Electronically Signed By:Farnaz Lacy RN Intervention Information
[2017-09-18] MEDS: PROPAFENONE HCL SR 225 MG CAP PO SCH (10:30)
--- NOTE | 2017-09-18 10:40 | GCON ---
[f rep st] CONSULTATION CARDIOLOGY CONSULTATION. DATE OF CONSULTATION: 09/17/2017 CHIEF COMPLAINT: Chest pain. HISTORY OF PRESENT ILLNESS: This is a 62-year-old male with history of atrial fibrillation and hyper tension who [facility] of [facility]. The patient indicate s that he was in his normal state of health and started having discomfort in his upper chest area whi ch does not vary with exertion. The patient felt like it could be related to his underlying GERD. H owever, the pain did not go away after a few hours. The patient came to the emergency room where he was found to then be pain free. His blood pressure and heart rate were stable. ECG showed normal si nus rhythm. There were inverted T-waves in the lead III and aVF, however, these were consistent with his older ECGs. The patient did have a recent stress test done in July of 2017, which was normal. Troponins are negative x2 sets: The patient is resting quietly. He denies any discomfort and is ac tually in good spirits. PAST MEDICAL HISTORY: Significant for hypertension and paroxysmal atrial fibrillation. HOME MEDICATIONS: Lisinopril, metoprolol succinate, Pradaxa, propafenone, sumatriptan. SOCIAL HISTORY: The patient denies any smoking. Occasional alcohol use. FAMILY HISTORY: Noncontributory. REVIEW OF SYSTEMS: HEENT: The patient denies any vision change. No headache. CARDIOVASCULAR: No palpitations. No jaw pain. No neck pain. No chest pain. No shortness of breath. GI: No abdomina l pain. MUSCULOSKELETAL: No lower extremity pain. NEURO: No new neurologic issues. PHYSICAL EXAMINATION: VITAL SIGNS: The patient is afebrile at 96, blood pressure is 130/70, the hea rt rate is 72, respirations are 12, his pulse sat 95% on room air. HEENT: Pupils are equal and roun d to light and accommodation. Extraocular movements intact. CARDIOVASCULAR: Regular rate and rhyth m. S1, S2. LUNGS: Clear to auscultation bilaterally. ABDOMEN: Soft tender to guarding. EXTREMIT IES: No clubbing, no cyanosis, no edema. NEUROLOGIC: The patient is alert x3. LABORATORY VALUES: Troponin negative x2 sets. ASSESSMENT/PLAN: Chest pain. At this time, the patient's chest pain has not returned, and the patie nt is actually feeling back to his baseline. Troponins are negative x2 sets. His ECG shows no new f indings as his inverted T-waves are present on prior ECGs. The patient did have a recent stress test done in July of 2017, which was normal and showed no ischemia. At this time, I have asked the martina ent to ambulate and to walk up and down the hallways. Also, we will give him Pepcid 20 mg intravenou s right now. If the patient should have no recurrence of his symptoms, I feel confident discharging the patient today and having the patient follow up with us as an outpatient. /[id number]/MODL
--- NOTE | 2017-09-18 18:42 | GDS ---
[f rep st] DISCHARGE SUMMARY DISCHARGE DIAGNOSES: Include: 1. Chest pain. 2. Atrial fibrillation, newer diagnosis. 3. Hypertension. 4. Migraines. 5. History of pulmonary embolism, completed anticoagulation. HISTORY OF PRESENT ILLNESS: A 62-year-old male with a history of atrial fibrillation and hypertensio n who presents with chest pain. For details of the patient's initial presentation, please see the Hi story and Physical dated 09/17/2017. CONSULTATIVE SERVICES: Included Cardiology. PROCEDURES: None. HOSPITAL COURSE BY ISSUES: Chest pain. Patient ruled out with recurrent 12-lead EKG. Patient had r ecent cardiac stress testing, which was negative for any concerning ischemia. Patient was seen by Ca rdiology and felt to be low risk, and dischargeable without additional risk stratification. The martina ent will follow in the outpatient setting with [facility]. We are attempting a trial of an H2 blo cker to see if a GI cause of chest pain can be ruled out. With this, patient will follow up at [facility] for outpatient followup. MEDICATIONS AT THE TIME OF TRANSFER: Please reference the med rec printed on 09/18/2017. FOLLOWUP APPOINTMENTS: Include with [facility] in the next 2-4 weeks for followup related to the patient's new medication and recurrent chest pain. I spent greater than 30 minutes in the planning and coordination of this discharge. /[id number]/MODL
== END 2017-09-18 13:01 | disposition home or self-care (01) ==
LOC: F2W 21:21
PROVIDERS: ADMIT Internal Medicine; ATTEND Internal Medicine
DX: R07.9 Chest pain, unspecified (principal); I48.91 Unspecified atrial fibrillation; I10 Essential (primary) hypertension; G43.909 Migraine, unspecified, not intractable, without status migrainosus; Z86.711 Personal history of pulmonary embolism
CPT/HCPCS: 71046; 93005; G0378